=== PATIENT | male | born 1990 | race African-American/Black ===

== ENCOUNTER 2017-12-11 16:39 | Emergency (ER) | payer OTHER ==
[~2017-12-11] VITALS: Ht 165.1 cm; Wt 68.0 kg
[2017-12-11 17:34] LABS: APPEARANCE,URINE CLEAR; BILIRUBIN, URINE NEGATIVE (NEGATIVE); COLOR,URINE PALE YELLOW; GLUCOSE, URINE (UA) NEGATIVE (NEGATIVE); KETONES,URINE NEGATIVE (NEGATIVE); LEUKOCYTE ESTERASE ,URINE 1+ (NEGATIVE); NITRITE,URINE NEGATIVE (NEGATIVE); PH,URINE 7 (4.5-8.0); PROTEIN,URINE NEGATIVE (NEGATIVE); UROBILINOGEN,URINE NORMAL MG/DL (0.0-1.0)
[2017-12-11] MEDS ORDERED: Phenazopyridine 200mg tab ORAL ONE (17:45)
[2017-12-11] MEDS ORDERED: Lidocaine 1% MPF 10mg/ml 5ml INJ ONE (17:45)
--- NOTE | 2017-12-11 17:54 | Emergency Room Report ---
History of Present Illness General Chief Complaint: Male Urogenital Problems Source: Patient Present Illness HPI 27-year-old male presents to the emergency department complaining of scant amount of bleeding from the penis after urination. Patient reports acute onset of dysuria as well. Patient states that prior to onset of his symptoms he had had to forcefully urinate due to time restriction and he noticed that his symptoms occurred next time he needed to urinate. Patient denies penile discharge, painful swollen tender lymph nodes, joint pain, fevers or chills. Patient does report recent unprotected intercourse. Patient denies history of STI or renal stones. Denies testicular pain or swelling. Denies trauma to the groin or abdomen.Patient reports 3 out of 10 severity dysuria. Denies abdominal pain . Denies penile lesions or rashes . Denies CP, Palpitations, LOC , AMS, dizziness, Changes in Vision, Sensation, paresthesias, or a sudden severe headache. Allergies: Coded Allergies: No Known Allergies (Unverified , 12/11/17) Patient History Past Medical History: see triage record Past Surgical History: none Pertinent Family History: none Reviewed Nursing Documentation: PMH: Agreed, PSxH: Agreed Nursing Documentation-PMH Past Medical History: No Stated History Review of Systems All Other Systems: negative except mentioned in HPI Physical Exam Vital Signs Date Time Temp Pulse Resp B/P (MAP) Pulse Ox O2 Delivery O2 Flow Rate FiO2 12/11/17 16:44 98.5 102 18 153/88 98 Room Air 98.4 Sp02 EP Interpretation: reviewed, normal General Appearance: no apparent distress, alert, GCS 15, non-toxic Head: normocephalic, atraumatic Eyes: bilateral eye normal inspection, bilateral eye PERRL ENT: hearing grossly normal, normal voice Neck: full range of motion Respiratory: lungs clear, normal breath sounds, speaking full sentences Cardiovascular #1: regular rate, rhythm Gastrointestinal: normal bowel sounds, non tender, soft Rectal: deferred Genitourinary: normal inspection, no CVA tenderness, penis normal - no evidence of blood or penile d/c Musculoskeletal: back normal, normal range of motion, non-tender Neurologic: alert, oriented x3, responsive, motor strength/tone normal, sensory intact, speech normal, grossly normal Psychiatric: judgement/insight normal Skin: normal color, no rash, warm/dry, well hydrated Lymphatic: no adenopathy Medical Decision Making PA Attestation Dr. Blanco is my supervising Physician whom patient management has been discussed with. Diagnostic Impression: Primary Impression: Hematuria Qualified Codes: R31.9 - Hematuria, unspecified Additional Impressions: Urethritis UTI (urinary tract infection) Qualified Codes: N30.01 - Acute cystitis with hematuria ER Course 27-year-old male presents to the emergency department complaining of scant amount of bleeding from the penis after urination. Patient reports acute onset of dysuria as well. Patient states that prior to onset of his symptoms he had had to forcefully urinate due to time restriction and he noticed that his symptoms occurred next time he needed to urinate. Patient denies penile discharge, painful swollen tender lymph nodes, joint pain, fevers or chills. Patient does report recent unprotected intercourse. Patient denies history of STI or renal stones. Denies testicular pain or swelling. Denies trauma to the groin or abdomen.Patient reports 3 out of 10 severity dysuria. Denies abdominal pain . Denies penile lesions or rashes . Denies CP, Palpitations, LOC , AMS, dizziness, Changes in Vision, Sensation, paresthesias, or a sudden severe headache. Ddx considered but are not limited to UTi , Urethritis, LGV, STI, Stone, Cystitis, prostatitis [employer] for [employer] was:Pt's Girlfriend/Visitor. Vital signs: are WNL, pt. is afebrile H&PE are most consistent with Urethritis ORDERS: - UA : few bacteria and no squamous cells -Positive for UTI. ED INTERVENTIONS: -250mg Rocephin IM -Pyridium PO DISCHARGE: At this time pt. is stable for d/c to home. Will provide printed patient care instructions, and any necessary prescriptions. Care plan and follow up instructions have been discussed with the patient prior to discharge. Labs Test 12/11/17 16:59 Urine Color Pale yellow Urine Appearance Clear Urine pH 7 (4.5-8.0) Urine Specific [place] 1.010 (1.005-1.035) Urine Protein Negative (NEGATIVE) Urine Glucose (UA) Negative (NEGATIVE) Urine Ketones Negative (NEGATIVE) Urine Occult Blood 1+ (NEGATIVE) Urine Nitrite Negative (NEGATIVE) Urine Bilirubin Negative (NEGATIVE) Urine Urobilinogen Normal MG/DL (0.0-1.0) Urine Leukocyte Esterase 1+ (NEGATIVE) Urine RBC 0-2 /HPF (0 - 0) Urine WBC 2-4 /HPF (0 - 0) Urine Squamous Epithelial Cells None /LPF (NONE/OCC) Urine Bacteria Few /HPF (NONE) Last Vital Signs Date Time Temp Pulse Resp B/P (MAP) Pulse Ox O2 Delivery O2 Flow Rate FiO2 12/11/17 16:44 98.5 102 18 153/88 98 Room Air 98.4 Disposition: HOME, SELF-CARE Condition: Stable Referrals: CESIA TAFOYA,REFERRING (PCP) Patient Instructions: Hematuria, Adult, Urinary Tract Infection Additional Instructions: Take medications as directed. - Pyridium will cause your urine to change color (Red/[place]), this is a normal side effect of the medication. Follow up with a Primary Care Provider in 3-5 days, even if your symptoms have resolved. --Please review list of primary care clinics, if you do not already have a primary care provider Return sooner to ED if new symptoms occur, or current symptoms become worse. - Please note that this Emergency Department Report was dictated using [employer] software, occasionally this can lead to erroneous entry secondary to interpretation by the dictation equipment. Yoon Alcantara Dec 11, 2017 17:54
[2017-12-11] MEDS ORDERED: VIBRAMYCIN100 MG ORAL (17:59)
[2017-12-11] MEDS ORDERED: CEPHALEXIN500 MG ORAL (17:59)
[2017-12-11] MEDS ORDERED: PHENAZOPYRIDIN200 MG ORAL (17:59)
[2017-12-11 18:15] VITALS: BP 142/70
== END 2017-12-11 18:15 | disposition home or self-care (01) ==
LOC: EMR 17:25
DX: R31.9 Hematuria, unspecified (principal); N34.2 Other urethritis; N39.0 Urinary tract infection, site not specified
CPT/HCPCS: 81003; 96372; 99283; J0696